=== PATIENT | male | born 1950 | race Caucasian/White ===

== ENCOUNTER 2021-04-19 13:32 | Outpatient (CLI) | payer MEDICARE, OTHER, SELFPAY ==
--- NOTE | 2021-04-19 | CT_ITS ---
WS: [id number] Exam: CT neck w con* [id number] Date/Time of Exam: 04/19/2021 1:43 PM Reason For Exam: PARALYSIS OF VOCAL CORDS AND LARYNX DLP: 1586.[address] scans at [facility] use at least one of these dose optimization techniques: automat ed exposure control; mA and/or kV adjustment per patient size (includes targeted exams where dose is matched to clinical indication); or iterative reconstruction. The next evaluated in the axial plane with sagittal coronal reformatted images. Intravenous contrast was administered. There was no sign of neck mass or significant cervical lymphadenopathy. The airway is patent. The sub mandibular glands and parotid glands are symmetrical side to side. No mass is seen in the region of t he tongue base. No airway mass seen. Normal thyroid tissue. No superior mediastinal lymphadenopathy s een. Vascular structures are unremarkable. Moderate degenerative change of the mid cervical spine. Vi sualized upper lung zones were clear. Small retention cyst in the posterior right maxillary sinus. Li mited images of the brain demonstrate no mass or acute bleed. CT/CT neck w con* [id number] IMPRESSION: 1. No sign of neck mass or significant cervical lymphadenopathy. No mass noted in the region of the airway. 2. Other minor findings as above.
[2021-04-19] MEDS: iohexol 300 mg/mL 100 mL Btl IV (14:15)
[2021-04-19 14:41] LABS: Blood Urea Nitrogen 13 mg/dL (8-23)
== END 2021-04-19 13:33 | disposition home or self-care (01) ==
PROVIDERS: Visit Provider Specialist
DX: J38.01 Paralysis of vocal cords and larynx, unilateral (principal); D49.0 Neoplasm of unspecified behavior of digestive system
CPT/HCPCS: 70491; 82565; 84520; Q9967

== ENCOUNTER → 2022-04-10 09:50 | Outpatient (BNVA) | payer MEDICARE, OTHER, SELFPAY | PROVIDERS: PCP Family Medicine; Visit Provider Family Medicine | DX: Z00.00 Encounter for general adult medical examination without abnormal findings (principal); R49.9 Unspecified voice and resonance disorder; R63.4 Abnormal weight loss; K46.9 Unspecified abdominal hernia without obstruction or gangrene | CPT/HCPCS: 80053; 82465; 84443; 85025 ==

== ENCOUNTER → 2022-04-16 07:50 | Outpatient (BNVA) | payer MEDICARE, OTHER, SELFPAY | PROVIDERS: PCP Family Medicine; Visit Provider Surgery | DX: K42.9 Umbilical hernia without obstruction or gangrene (principal); K40.90 Unilateral inguinal hernia, without obstruction or gangrene, not specified as recurrent | CPT/HCPCS: 99203 ==

== ENCOUNTER 2022-05-05 09:30 | Day surgery (SDC) | payer MEDICARE, OTHER, SELFPAY ==
[2022-05-05] VITALS (8 sets, daily range): BP systolic 140–165; BP diastolic 29–94; PULSE 55–86; RESP 13–18; TEMP 36.1–36.6; O2SAT 93–97
--- NOTE | 2022-05-05 09:59 | W.PM.OPSUD ---
Surgery/Procedure H&P Update DATE OF PROCEDURE: May 05, 2022 DATE H&P PERFORMED: 04/16/22 CHANGES TO PREVIOUS DOCUMENTATION: None PREOP DIAGNOSIS: umbilical and right inguinal hernias PLANNED PROCEDURE: Operation Date: 05/05/22 10:55 Proposed Procedures p laparascopic umbilical hernia repair with mesh & right inguinal hernia repair w/mesh possible open and possible bilateral 49219,28739,K42.9(Not Applicable) - Kostas Oliver DO s Laparoscopic Inguinal Hernia Repair(Not Applicable) - Kostas Oliver DO
[2022-05-05] MEDS: sodium chloride 0.9% 1,000 ML 30 ML IV (10:10)
[2022-05-05] MEDS: ceFAZolin 2,000 MG in sodium chloride 0.9% (plus) 50 ML 100 MG IV (10:16)
--- NOTE | 2022-05-05 10:50 | ANES.PREANE2 ---
Pre-Anesthetic Assessment Height/Weight: Height 1.8 m Weight 72.575 kg Temp Pulse Resp BP Pulse Ox O2 Del Method 97.6 F 55 L 18 140/29 97 05/05/22 09:53 05/05/22 09:53 05/05/22 09:53 05/05/22 09:53 05/05/22 09:53 05/05/22 09:53 Preop Diagnosis: umbilical and right inguinal hernias Operation Date: 05/05/22 10:55 Proposed Procedures p laparascopic umbilical hernia repair with mesh & right inguinal hernia repair w/mesh possible open and possible bilateral 10748,33925,K42.9(Not Applicable) - Kostas Oliver DO s Laparoscopic Inguinal Hernia Repair(Not Applicable) - Kostas Oliver DO Familial anesthetic complications: none Was Beta Alvarez taken within 24 hours: N/A Was Clonidine taken within 24 hours: N/A Last intake: Intake Last Liquid Date 05/04/22 Last Liquid Time 20:00 Last Solid Date 05/04/22 Last Solid Time 20:00 Social No alcohol and No tobacco Exam alert, oriented x 3, clear to auscultation bilaterally and regular rate & rhythm Airway Submandibular: within normal limits Cervical ROM: within normal limits Mallampati: Class II Dentition: chipped History/ROS No significant history except as noted Musc/skel Osteoarthritis/DJD Anesthetic Plan Anesthesia: General Medications/Allergies Home Medications Medication Instructions Recorded Confirmed Last Taken Type aspirin 325 mg tablet 162.5 mg PO PRN PRN Pain 05/02/22 05/02/22 04/30/22 History Allergies Allergy/AdvReac Type Severity Reaction Status Date / Time No Known Allergies Allergy Unverified 04/16/22 07:52 Current Medications Generic Name Dose Route Start Last Admin Trade Name Freq PRN Reason Stop Dose Admin Sodium Chloride 1,000 mls @ 30 mls/hr 05/05/22 10:00 05/05/22 10:10 Sodium Chloride 0.9% IV 05/06/22 09:59 30 mls/hr .Q24H YAN Administration PFSH Anesthesia Surgical History History of esophagogastroduodenoscopy (EGD) [address] Mercedes Hx of colonoscopy Hx of tonsillectomy Social History Smoking and tobacco status: never smoked Data Anesthesia Cardiac Studies: No Data to Display
--- NOTE | 2022-05-05 11:58 | P.OP_ITS ---
Operative Report Date of procedure: May 05, 2022 Pre-op diagnosis: Preop Diagnosis umbilical and right inguinal hernias Post-op diagnosis: same Procedure done: Laparoscopic repair of right inguinal hernia and umbilical hernia with meshes Implants: Extra-large right inguinal 3D max mesh and 11 cm round ventral light mesh Specimens removed/disposition: Umbilical hernia sac Surgeon: Dr. Kostas Oliver DO Anesthesia: General Estimated blood loss (mL): 10 Complications: None apparent Brief History: This is a very pleasant 72-year-old male with a years long history of umbilical hernia and a 5-month history of right inguinal hernia. Repairs were indicated for both. Risks and benefits were explained and documented Procedure: Patient was wheeled into the operative room and placed on the OR table in a supine position. Abdomen was inspected prepped and draped in usual sterile fashion. Time-out was performed and all present were in agreement. A 15 blade scalpel was used to make 1.2 centimeter incision infraumbilically. Combination of sharp and blunt dissection was performed down to the anterior rectus sheath which was opened sharply. The dissecting balloon was then inserted into the space of Retzius and blown up. We put the camera into the port and identified that we were in the correct space. I then placed 2 5 millimeter trocars supr apubically in the midline. I then used endokitners to bluntly dissect in the space of Retzius out laterally. An indirect right inguinal hernia was identified. Blunt dissection was performed to dissect down the hernia sac until the vas deferens dove medially. There was a tiny arterial bleed from the side of the testicular artery which stopped with a tiny pulse of cautery on the side of the artery. An extra large right inguinal mesh was then placed into the space of Retzius. The mesh was unrolled and tacked once medially at the pubic bone. The mesh laid out nicely over the spermatic cord. Photos were taken of the mesh laid out and the hernia sac laid underneath the mesh. I watched the hernia sac remained in place as insufflation was removed. A 15 blade scalp was used to make a 5 millimeter incision left upper quadrant. A Veress needle was placed into the incision and intra-abdominal insufflation was brought to 15 millimeters of mercury. A 2nd 5 millimeter trocar was placed into the left lower quadrant. The energy device was then used to cut out the hernia sac, which was then removed via the left lower quadrant port. An 11 centimeter mesh was placed into the abdomen and brought up through the umbilicus. The mesh was then tacked in place in a double crown fashion. The skeleton was then removed from the mesh. Incisions were closed with 4 O Vicryl in a subcuticular interrupted fashion. Skin glue was applied. A dressing that included cotton balls and a Tegaderm was placed over the umbilicus. Patient tolerated the procedure well.
[2022-05-05] MEDS: tranexamic acid 1,000 mg/10mL SDV 1000 MG IV (12:20)
[2022-05-05] MEDS: HYDROcodone-acetaminophen 7.5-325 mg Tablet 1 TAB PO (12:49)
--- NOTE | 2022-05-05 13:04 | ANE.PACU2 ---
Inpatient post-anesthesia follow up: Airway intact: Yes Vital signs: Temperature 97.8 F Pulse Rate 86 Respiratory Rate 13 Blood Pressure 165/84 Pulse Oximetry 95 Oxygen Delivery Me thod Room Air Oxygen Flow Rate Fraction of Inspir ed Oxygen Hydration adequate: Yes Nausea and vomiting: No Pain level: 4 Mental status: Baseline
== END 2022-05-05 13:11 | disposition home or self-care (01) ==
PROVIDERS: PCP Family Medicine; Visit Provider Surgery
PROC: 0WQF4ZZ Repair Abdominal Wall, Percutaneous Endoscopic Approach (ICD-10-PCS; CPT 49650; principal; 2022-05-05 10:45)
PROC: (CPT 49650; 2022-05-05 10:45)
DX: K40.90 Unilateral inguinal hernia, without obstruction or gangrene, not specified as recurrent (principal); K42.9 Umbilical hernia without obstruction or gangrene; M19.90 Unspecified osteoarthritis, unspecified site
CPT/HCPCS: 49650; 49652; 51702; 88302; C1781; J1100; J1200; J2405; J2704; J2710; J3010; J3490; J7030

== ENCOUNTER → 2022-05-21 13:53 | Outpatient (BNVA) | payer MEDICARE, OTHER, SELFPAY | PROVIDERS: PCP Family Medicine; Visit Provider Surgery | DX: Z98.890 Other specified postprocedural states (principal); Z87.19 Personal history of other diseases of the digestive system | CPT/HCPCS: 99024 ==

== ENCOUNTER 2022-07-01 06:00 | Outpatient (RCR) | payer MEDICARE, OTHER, SELFPAY | END 2022-07-21 23:59 | disposition home or self-care (01) | LOC: SST 06:00 | PROVIDERS: PCP Family Medicine; Visit Provider Specialist | DX: J38.01 Paralysis of vocal cords and larynx, unilateral (principal); R49.0 Dysphonia | CPT/HCPCS: 92507; 92524 ==

== ENCOUNTER → 2022-07-21 10:30 | Outpatient (BNVA) | payer MEDICARE, OTHER, SELFPAY | PROVIDERS: PCP Family Medicine; Visit Provider Surgery | DX: Z12.11 Encounter for screening for malignant neoplasm of colon (principal) | CPT/HCPCS: 99024; 99213 ==

== ENCOUNTER 2022-09-19 05:43 | Day surgery (SDC) | payer MEDICARE, OTHER, SELFPAY ==
[2022-08-13 09:34] VITALS: BMI 22.3
[2022-09-19 06:04] VITALS: BP 129/79; PULSE 66; RESP 18; TEMP 36.5; O2SAT 99
[2022-09-19] MEDS: sodium chloride 0.9% 1,000 ML 30 ML IV (06:17)
--- NOTE | 2022-09-19 06:27 | ANES.PREANE2 ---
Pre-Anesthetic Assessment Height/Weight: Height 1.8 m Weight 72.575 kg Temp Pulse Resp BP Pulse Ox O2 Del Method 97.7 F 66 18 129/79 99 09/19/22 06:04 09/19/22 06:04 09/19/22 06:04 09/19/22 06:04 09/19/22 06:04 09/19/22 06:04 Preop Diagnosis: Screening Operation Date: 09/19/22 07:00 Proposed Procedures p Colonoscopy 37012,Z12.11(Not Applicable) - Kostas Oliver DO Familial anesthetic complications: None Was Beta Alvarez taken within 24 hours: N/A Was Clonidine taken within 24 hours: N/A Last intake: Intake Last Liquid Date 09/18/22 Last Liquid Time 22:00 Last Solid Date 09/17/22 Last Solid Time 20:00 Social Alcohol (1-2 beers a day) and No tobacco Exam alert, oriented x 3, clear to auscultation bilaterally and regular rate & rhythm Airway Submandibular: within normal limits Cervical ROM: within normal limits Mallampati: Class III Dentition: chipped and full History/ROS No significant history except as noted and No significant complaints Pulmonary None reported CV/HEM None reported None reported Hepatic None reported GI None reported Metabolic None reported Musc/skel Lower Back Pain and Osteoarthritis/DJD Neuropsych None reported Anesthetic Plan ASA status: 2 Anesthesia: Anesthesia Evaluation, General and MAC Risk of > 500 ml blood loss (7ml/kg in children): No Medications/Allergies Home Medications Medication Instructions Recorded Confirmed Last Taken Type aspirin 325 mg tablet 162.5 mg PO PRN PRN Pain 05/02/22 09/16/22 08/20/22 History Allergies Allergy/AdvReac Type Severity Reaction Status Date / Time No Known Allergies Allergy Unverified 09/16/22 13:30 Current Medications Generic Name Dose Route Start Last Admin Trade Name Freq PRN Reason Stop Dose Admin Sodium Chloride 1,000 mls @ 30 mls/hr 09/19/22 06:00 09/19/22 06:17 Sodium Chloride 0.9% IV 09/20/22 05:59 30 mls/hr .Q24H YAN Administration PFSH Anesthesia Surgical History History of esophagogastroduodenoscopy (EGD) [address] Mercedes Hx of colonoscopy Hx of tonsillectomy S/P hernia repair 05/05/22 Laparoscopic repair of right inguinal hernia and umbilical hernia with meshes Social History Smoking and tobacco status: never smoked Data Anesthesia Cardiac Studies: No Data to Display
--- NOTE | 2022-09-19 06:52 | PM.HP ---
Providers/Chief Complaint Primary Care Provider: Rosas Mcgee DO Chief Complaint: encounter for screening for malignant History of Present Illness Izaiah Rodriguez is a 72 year old male here for colonoscopy Medications/Allergies Home Medications Medication Instructions Recorded Confirmed Last Taken Type aspirin 325 mg tablet 162.5 mg PO PRN PRN Pain 05/02/22 09/16/22 08/20/22 History Allergies Allergy/AdvReac Type Severity Reaction Status Date / Time No Known Allergies Allergy Unverified 09/16/22 13:30 PFSH Acute PFSH: Surgical History History of esophagogastroduodenoscopy (EGD) [address] Mercedes Hx of colonoscopy Hx of tonsillectomy S/P hernia repair 05/05/22 Laparoscopic repair of right inguinal hernia and umbilical hernia with meshes Social History Smoking and tobacco status: never smoked Vitals/I&O/Wt Last Vital Signs Temp 97.7 F 09/19/22 06:04 Pulse 66 09/19/22 06:04 Resp 18 09/19/22 06:04 BP 129/79 09/19/22 06:04 Pulse Ox 99 09/19/22 06:04 O2 Del Method 09/19/22 06:04 A&P Assessment and plan (1) Screening for colon cancer: Plan Colonoscopy Attestations Medical Necessity Statement*: Home Coding Level of Care Code Acute Energy Operations Vice President for Chg Fwd Diagnoses Screening for colon cancer Z12.11
[2022-09-19 07:17] VITALS: BP 93/59; PULSE 61; RESP 16; TEMP 36.3; O2SAT 97
[2022-09-19 07:30] VITALS: BP 120/72; PULSE 60; RESP 18; O2SAT 95
--- NOTE | 2022-09-19 14:04 | ANE.PACU2 ---
Inpatient post-anesthesia follow up: Airway intact: Yes Vital signs: Temperature 97.4 F Pulse Rate 60 Respiratory Rate 18 Blood Pressure 120/72 Pulse Oximetry 95 Oxygen Delivery Me thod Room Air Oxygen Flow Rate Fraction of Inspir ed Oxygen Hydration adequate: Yes Nausea and vomiting: No Pain level: 1 Mental status: Baseline
== END 2022-09-19 07:53 | disposition home or self-care (01) ==
PROVIDERS: PCP Family Medicine; Visit Provider Surgery
PROC: 0DJD8ZZ Inspection of Lower Intestinal Tract, Via Natural or Artificial Opening Endoscopic (ICD-10-PCS; CPT 45378; principal; 2022-09-19 07:00)
DX: Z12.11 Encounter for screening for malignant neoplasm of colon (principal); K57.30 Diverticulosis of large intestine without perforation or abscess without bleeding; Z79.82 Long term (current) use of aspirin
CPT/HCPCS: G0121; J2704; J7030

== ENCOUNTER → 2022-12-15 11:30 | Outpatient (BNVA) | payer MEDICARE, OTHER, SELFPAY | PROVIDERS: PCP Family Medicine; Visit Provider Clinical Nurse Specialist Adult Health | DX: G25.2 Other specified forms of tremor (principal); R27.9 Unspecified lack of coordination; R63.4 Abnormal weight loss; K46.9 Unspecified abdominal hernia without obstruction or gangrene | CPT/HCPCS: 80053; 81000; 85025 ==

== ENCOUNTER 2023-01-05 07:06 | Outpatient (CLI) | payer MEDICARE, OTHER, SELFPAY ==
--- NOTE | 2023-01-05 07:15 | MR_ITS ---
WS: [id number] MRI HEAD WITHOUT CONTRAST TECHNIQUE: Sagittal T1, T2 axial, T2 axial FLAIR, axial and coronal T1 images, axial susceptibility w eighted imaging, axial diffusion weighted images, and coronal T2 images were obtained. CLINICAL INFORMATION: change in motor skills COMPARISON: CT 2010 FINDINGS: No evidence of restricted diffusion to suggest acute ischemia. Ventricular system and basal cisterns are patent. Moderate small vessel changes. Moderate parenchymal volume loss. Normal vascular flow voi ds at the skull base. No extra-axial fluid collections. No evidence of mass or mass effect. Paranasal sinuses and mastoid air cells well aerated. Normal posterior nasopharynx. Normal parapharyngeal fat. Small retention cyst RIGHT maxillary sinus measuring 9 mm. No hemosiderin on the susceptibly weighted images. Temporal lobes and hippocampal formations are norm al in appearance with mild symmetric atrophy. Normal optic chiasm and pituitary infundibulum. Normal cavernous sinuses and Meckel's cave. MR/MR head wo con* [id number] IMPRESSION: 1. No evidence of restricted diffusion to suggest acute ischemia. 2. Moderate small vessel changes with moderate parenchymal volume loss progres sed compared to the CT 2010 3. No hemosiderin on susceptibly weighted images. 4. Mild symmetric atrophy of the temporal lobes and hippocampal formations. 5. No other suspicious findings.
== END 2023-01-05 07:07 | disposition home or self-care (01) ==
LOC: RAD 07:08
PROVIDERS: PCP Family Medicine; Visit Provider Clinical Nurse Specialist Adult Health
DX: G25.2 Other specified forms of tremor (principal); R27.9 Unspecified lack of coordination; R63.4 Abnormal weight loss; R49.9 Unspecified voice and resonance disorder
CPT/HCPCS: 70551

== ENCOUNTER → 2023-03-10 09:51 | Outpatient (BNVA) | payer MEDICARE, OTHER, SELFPAY | PROVIDERS: PCP Family Medicine; Visit Provider Psychiatry & Neurology Neurology | DX: G20 Parkinson's disease (principal); R26.89 Other abnormalities of gait and mobility; R27.9 Unspecified lack of coordination; R93.0 Abnormal findings on diagnostic imaging of skull and head, not elsewhere classified | CPT/HCPCS: 99203 ==

== ENCOUNTER → 2023-03-17 14:37 | Outpatient (BNVA) | payer MEDICARE, OTHER, SELFPAY | PROVIDERS: PCP Family Medicine; Visit Provider Clinical Nurse Specialist Adult Health | DX: N40.0 Benign prostatic hyperplasia without lower urinary tract symptoms (principal); N52.9 Male erectile dysfunction, unspecified; R63.4 Abnormal weight loss; H61.22 Impacted cerumen, left ear; L57.0 Actinic keratosis | CPT/HCPCS: 84153 ==

== ENCOUNTER 2023-03-25 13:24 | Outpatient (CLI) | payer MEDICARE, OTHER, SELFPAY ==
--- NOTE | 2023-03-25 13:45 | USCV_ITS ---
MichaelIzaiah reza Age: 72 Gender: M : 1950 Exam Date: 03/25/2023 13:38 Ordering Phys: Winston Patel MD Technologist: RADHA Exam Location: [facility] [place] Indication: WEAKNESS Risk Factors: Previous Vascular Surgery: Right Brachial BP: / Left Brachial BP: / Right Left Velocity (cm/s) Spectral Plaque Velocity (cm/s) Spectral Plaque Syst/Diast Broadening Syst/Diast Broadening 123.50/17.60 Prox CCA 86.30 / 7.60 110.20/15.40 Mid CCA 103.80/ 8.70 90.90/ 16.00 Distal CCA 86.30 / 9.80 48.10/ 13.40 Prox ICA 48.90 / 10.10 57.00/ 18.80 Mid ICA 65.40 / 19.80 52.90/ 15.30 Distal ICA 54.00 / 14.40 153.80 ECA 92.90 0.46 ICA/CCA 0.63 Antegrade Vertebral Antegrade 26.40/ 9.20 cm/s 54.90/ 12.10 cm/s Tri Subclavian Tri 100.6 111.0 0 0 CONCLUSIONS Right ICA stenosis <50%. Left ICA stenosis <50%. Normal antegrade Doppler flow noted in the right vertebral artery. Normal antegrade Doppler flow noted in the left vertebral artery. Akash Rosado MD (Electronically Signed) Final Date: 25 March 2023 14:26 S
--- NOTE | 2023-03-25 14:15 | USCV_ITS ---
Izaiah Rodriguez Age: 72 Gender: M : 1950 Exam Date: 03/25/2023 14:02 Ordering Phys: Winston Patel MD Technologist: Shaniqua Choi Exam Location: [facility] [place]_ Indication: WEAKNESS BP: 139 / 80 HR: 71 Rhythm: Sinus Technical Quality: Adequate MEASUREMENTS (Male / Female) Normal Values 2D ECHO LVOT Diameter 2.0 cm LV Ejection Fraction MOD 2C 72.1 % LV Ejection Fraction 2C AL 73.2 % LA Diameter 3.7 cm LA Width 3.6 cm LA Height 4.2 cm RA Width 2.4 cm RA Height 4.4 cm Aorta at Sinotubular Diameter 2.9 cm IVC Diameter 1.3 cm M-MODE Aortic Annulus Diameter 3.3 cm LA Ao Ratio MM 1.1 MV E Point Septal Separation 0.5 cm DOPPLER AV Peak Velocity 176.7 cm/s LVOT Peak Velocity 154.0 cm/s AV Area Cont Eq vti 3.0 cm squared AV Area Cont Eq pk 2.7 cm squared MV Peak Velocity 130.0 cm/s MV Area PHT 2.9 cm squared Mitral E to A Ratio 0.7 MV E' Velocity 41.5 cm/s Mitral E to MV E' Ratio 9.3 Mitral E to LV E' Lateral Ratio 8.4 Mitral E to LV E' Septal Ratio 10.3 TR Peak Velocity 156.0 cm/s TR Peak Gradient 9.7 mmHg TR Mean Velocity 135.0 cm/s TR Mean Gradient 7.3 mmHg TR Velocity Time Integral 42.8 cm TV Peak E Velocity 59.0 cm/s Right Atrial Pressure 3.0 mmHg Pulmonary Artery Systolic Pressu 12.7 mmHg PV Peak Velocity 179.0 cm/s RV Acceleration Time 0.1 s RV Ejection Time 0.3 s RV AcT/ET 0.5 FINDINGS Left Ventricle Normal left ventricular size. LV systolic function is normal with EF of 60 to 65%. No regional wall motion abnormalities are seen. Grade 1 diastolic dysfunction Right Ventricle The right ventricle is normal in size and function. Right Atrium The right atrium is normal in size. Left Atrium Dilated Mitral Valve Mild mitral annular calcification is seen. Mild mitral regurgitation. Aortic Valve Structurally normal aortic valve without significant stenosis. There is no aortic regurgitation. Tricuspid Valve Trace tricuspid regurgitation. Insufficient TR jet to calculate RVSP. Pulmonic Valve Trace pulmonic regurgitation. Pericardium Normal pericardium without effusion. Aorta Normal ascending aorta dimension. IVC The inferior vena cava appears normal. CONCLUSIONS LV systolic function is normal with EF of 60 to 65% Grade 1 diastolic dysfunction Left atrial dilation Mild mitral regurgitation Trace tricuspid regurgitation Trace pulmonic regurgitation No comparison studies are available Larry Batista MD (Electronically Signed) Final Date: 28 March 2023 09:45 S
== END 2023-03-25 13:25 | disposition home or self-care (01) ==
LOC: RAD 13:27
PROVIDERS: PCP Family Medicine; Visit Provider Psychiatry & Neurology Neurology
DX: R26.89 Other abnormalities of gait and mobility (principal); R53.1 Weakness; R27.9 Unspecified lack of coordination; G25.2 Other specified forms of tremor; I34.0 Nonrheumatic mitral (valve) insufficiency; I65.23 Occlusion and stenosis of bilateral carotid arteries
CPT/HCPCS: 93306; 93880

== ENCOUNTER → 2023-05-27 15:09 | Outpatient (BNVA) | payer MEDICARE, OTHER, SELFPAY | PROVIDERS: PCP Family Medicine; Visit Provider Psychiatry & Neurology Neurology | DX: G20 Parkinson's disease (principal) | CPT/HCPCS: 99212 ==

== ENCOUNTER → 2023-06-05 07:21 | Outpatient (BNVA) | payer MEDICARE, OTHER, SELFPAY | PROVIDERS: PCP Family Medicine; Visit Provider Clinical Nurse Specialist Adult Health | DX: L08.9 Local infection of the skin and subcutaneous tissue, unspecified (principal); B95.8 Unspecified staphylococcus as the cause of diseases classified elsewhere | CPT/HCPCS: 80053; 85025; 85651; 86140 ==

== ENCOUNTER → 2023-06-11 15:48 | Outpatient (BNVA) | payer MEDICARE, OTHER, SELFPAY | PROVIDERS: PCP Family Medicine; Referring Provider Clinical Nurse Specialist Adult Health; Visit Provider Dermatology | DX: L30.9 Dermatitis, unspecified (principal) | CPT/HCPCS: 11104; 11105; 99204 ==

== ENCOUNTER → 2023-06-24 14:17 | Outpatient (BNVA) | payer MEDICARE, OTHER, SELFPAY | PROVIDERS: PCP Family Medicine; Visit Provider Dermatology | DX: L12.0 Bullous pemphigoid (principal) | CPT/HCPCS: 99213 ==

== ENCOUNTER → 2023-08-04 15:13 | Outpatient (BNVA) | payer MEDICARE, OTHER, SELFPAY | PROVIDERS: PCP Family Medicine; Visit Provider Dermatology | DX: L12.0 Bullous pemphigoid (principal) | CPT/HCPCS: 99213 ==

== ENCOUNTER → 2023-08-25 15:16 | Outpatient (BNVA) | payer MEDICARE, OTHER, SELFPAY | PROVIDERS: PCP Family Medicine; Visit Provider Psychiatry & Neurology Neurology | DX: G20.A1 Parkinson's disease without dyskinesia, without mention of fluctuations (principal) | CPT/HCPCS: 99212 ==

== ENCOUNTER → 2023-12-03 15:23 | Outpatient (BNVA) | payer MEDICARE, OTHER, SELFPAY | PROVIDERS: PCP Family Medicine; Visit Provider Nurse Practitioner Family | DX: L12.0 Bullous pemphigoid (principal); L72.0 Epidermal cyst; L57.0 Actinic keratosis; S50.911A Unspecified superficial injury of right forearm, initial encounter; X58.XXXA Exposure to other specified factors, initial encounter | CPT/HCPCS: 17000; 99213 ==

== ENCOUNTER → 2024-03-17 08:40 | Outpatient (BNVA) | payer MEDICARE, OTHER, SELFPAY | PROVIDERS: PCP Family Medicine; Visit Provider Clinical Nurse Specialist Adult Health | DX: L98.9 Disorder of the skin and subcutaneous tissue, unspecified (principal) | CPT/HCPCS: 88304 ==

== ENCOUNTER → 2024-04-05 14:23 | Outpatient (BNVA) | payer MEDICARE, OTHER, SELFPAY | PROVIDERS: PCP Family Medicine; Visit Provider Psychiatry & Neurology Neurology | DX: G20.A1 Parkinson's disease without dyskinesia, without mention of fluctuations (principal) | CPT/HCPCS: 99212 ==

== ENCOUNTER → 2024-04-11 11:29 | Outpatient (BNVA) | payer MEDICARE, OTHER, SELFPAY | PROVIDERS: PCP Family Medicine; Visit Provider Surgery | DX: C43.9 Malignant melanoma of skin, unspecified (principal); L98.9 Disorder of the skin and subcutaneous tissue, unspecified; R03.0 Elevated blood-pressure reading, without diagnosis of hypertension | CPT/HCPCS: 99204; 99214 ==

== ENCOUNTER 2024-05-17 07:55 | Day surgery (SDC) | payer MEDICARE, OTHER, SELFPAY ==
--- OUTSIDE RECORDS SUMMARY | 2024-04-15 16:34 | XMS_ITS ---
Author Name Unknown Organization [facility] Address [address] [place] [address] Care Team Providers Care Fur Sorter Name Role Phone Rosas Mcgee Primary Care Provider Vinod Orellana [phone] REASON FOR VISIT 1 yr w/ psa Encounters Encounter Location Date Provider Diagnosis [facility] [address] [place] [address] 04/04/2024 Vinod Calloway Plan Of Treatment No Information Progress Notes * Izaiah FIELD LDOB: [birth year] (74 yo M)Acc No.[id number]:04/04/2024 Progress Notes Patient:?Izaiah FIELD Provider:?Vinod Calloway MD :1950???Age:74 Y???Sex:Male Ambrocio e:04/04/2024 Address:[address] [place], [place] [id number] Pcp:Rosas Mcgee Subjective: * Chief Complaints: * ???1. 1 yr w/ psa. * Medical History:? Objective: * Vitals:? Assessment: Plan: * Treatment: * Billing Information: * Visit Code:? * Procedure Codes:? * Electronic signature of Aust in MD Brodie on 04/15/2024 at 04:34 PM CDT Sign off status: Pending * Provider:?Vinod Calloway MD Date:? Generated for Helenai svitlana/Ena/eTransmitting on:?04/15/2024 04:34 PM CDT
--- OUTSIDE RECORDS SUMMARY | 2024-04-15 16:34 | XMS_ITS ---
Author Name Unknown Organization [facility] Address [address] [place] [address] Care Team Providers Care Bull Wheel Worker Name Role Phone Rosas Mcgee Primary Care Provider Vinod Orellana Unavailable [phone] Remy Yip Unavailable [phone] Allergies No Known Allergies REASON FOR VISIT 4 mo w/ psa Medications Medication SIG (Take, Route, Fr equency, Duration) Notes Start Date End Date Status Zinc Active Vitamin B Complex Ac tive Multivitamin Active Social History Tobacco Use: Social History Observation Description Date Details (start date - stop date) Never Smoker NA - NA xTobacco Use/Smoking Question Answer Notes Are you a nonsmoker Vital Signs Temperature 97.9 degrees Fahrenheit 03/30/20 23 Blood pressure systolic 128 mm Hg 03/30/20 23 Blood pressure diastolic 91 mm Hg 023 Heart Rate 68 /min 03/30/2023 Height 71 in 03/30/2023 Weight 160 lbs 03/30/2023 BMI 22.31 kg/m2 03/30/2023 Height-cm 180.34 cm 03/30/2023 Weight-kg 72.57 kg 03/30/2023 Encounters Encounter Location Date Provider Diagnosis [facility] [address] [place] [address] 03/30/2023 Remy Yip Elevated PSA R97.20 ; Other specified postprocedural states Z98.890 and Personal history of other diseases of the digestive system Z87.19 Assessments Encounter Date Diagnosis (ICD Code) Assessment Notes Treat ment Notes Treatment Clinical Notes 03/30/2023 Elevated PSA (ICD-10 - R97.20) 03/30/2023 Other specified postprocedural states (ICD-10 - Z98.890) 03/30/2023 Personal history of other diseases of the digestive system (ICD-10 - Z87.19) Plan Of Treatment Future Test Test Name Order Date PSA Diagnostic--[id number] 03/30/2023 Next Appt Details Follow Up: 1 Year, Reason: Progress Notes * Izaiah FIELD LDOB: [birth year] (73 yo M)Acc No.[id number]:03/30/2023 Progress Notes Patient:?Izaiah Field Provider:?Remy Yip APRN :1950???Age:73 Y???Sex:Male Ambrocio e:03/30/2023 Address:[address] [place], [place] [id number] Pcp:Rosas Mcgee Check Out: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 The patient is a 73-yo male, referred by PCP for BPH. He reports the doctor noticed an enlarged prostate on the right side during a colonoscopy. PSA 3.06 on 12/19/2010. He is s/p laparoscopic umbilical and inguinal hernia repair with mesh on 05/05/[address] Oliver at [facility] in [place]. He c/o frequency, however, he notes to drink a lot of beer and coffee. He has been on Viagra 25 mg in the past. He denies h/o UTIs. Previous IPSS 4, QOL 1. UA continues to remain clear, and patient is emptying well by reports. No family history of prostate cancer. Denies unintentional weight loss. ?Patient last saw Dr. Calloway on 11/20/22, and here today for interval followup and symptom reassessment. PSA at last office visit was 5.29 drawn on 11/07/22. He reports he has been doing well and denies any urinary complaints. SOLIS at last office visit was with no acute findings. Today's PSA of 4.4. * ROS:?General - Multi System:?Constitutional?Denies, chills , fever , BODY ACHES.?Cardiovascular?Denies recent chest pains.?Respiratory?Denies shortness of breath.?Gastrointestinal?Denies constipation, diarrhea, vomiting.?Genitourinary?As per HPI.?Integumentary?Denies any rashes.? * Medical History:? * Surgical History:?umbilical hernia repair 04/2022tonsillectomy * Hospitalization/Major Diagno stic Procedure:?No Hospitalization History. * Family History:?Father: dece ased.?Mother: .? * Social History:?Tobacco Use:?Tobacco Use/Smoking?Are you a?nonsmoker * Medications:?TakingZinc Mult ivitamin Vitamin B Complex Taking Zinc Taking Multivitamin Taking Vitamin B Complex DiscontinuedAspirin Medication List reviewed and reconciled with the patientDiscontinued Aspirin Medication List reviewed and reconciled with the patient * Allergies:?N.K.D.A.no[Allerg ies Verified] Objective: * Vitals:?Ht: 71 in, Wt:160 lb s, Wt-k.57 kg, BMI:22.31 Index, Temp:97.9 F, BP:128/91 mm Hg, HR:68 /min, Ht-cm: 180.34 cm. * Examination: ???General Examination: ?GENERAL APPEARANCE:?alert, well hydrated, in no distress.?HEAD:?normocephalic, atraumatic.?HEART:?well-perfused.?LUNGS:?nonlabored breathing.?RECTAL:?Normal tone, benign feeling prostate, greater than 40 g, no nodules, asymmetrical with right lobe larger than left.?BACK:?no costovertebral angle tenderness.?PSYCH:?alert, oriented, cognitive function intact, cooperative with exam.? Assessment: * Assessment: 1.?Elevated PSA - R97.20 (Pr imary)?2.?Other specified postprocedural states - Z98.890?3.?Personal history of other diseases of the digestive system - Z87.19? 73-yo male with elevated PSA and h/o hernia repair. PSA 5.29 on 11/07/22. SOLIS benign at last office visit. Today's PSA of 4.4. SOLIS at last office visit with Dr. Calloway was performed and was normal. I again explained to the patient that although his PSA has risen to 5.29 from 3.06 in 2010, it is still within normal range for his age. Today's PSA of 4.4. I recommended repeating PSA and interval follow-ups, however, patient is requesting transition to yearly follow-ups. I agreed with this plan and will schedule accordingly for 1 year follow-up and for symptom reassessment and new PSA as mentioned. RTC or call sooner with any concerns. The patient voices understanding and agrees with the plan. All of his questions were answered to his satisfaction. Plan: * Treatment: * Procedure Codes:? * Follow Up:?1 Year * Billing Information: * Visit Code:? 10167 Office Visit, Est Pt., Level 3. * Procedure Codes:? * Sign off status: Completed true * Provider:Elvia Yip APRN Date:?03/21 Generated for Anahi shane/Ena/Bekah on:?04/15/2024 04:34 PM CDT History and Physical Notes * Examination Category Sub-Category Detail Notes General Examination GENERAL APPEARANCE: alert, w ell hydrated, in no distress HEAD: normocephalic, atrau matic HEART: well-perfused LUNGS: nonlabored breathing BACK: no costovertebral an gle tenderness RECTAL: Normal tone, benign feeling prostate, greater than 40 g, no nodules, asymmetrical with right lobe larger than left PSYCH: alert, oriented, cog nitive function intact, cooperative with exam
--- OUTSIDE RECORDS SUMMARY | 2024-04-15 16:35 | XMS_ITS ---
Author Name Unknown Organization [facility] Address [address] [place] [address] Care Team Providers Care Bessemer Bottom Maker Name Role Phone Rosas Mcgee Primary Care Provider Vinod Orellana Unavailable [phone] Allergies No Known Allergies REASON FOR VISIT 2-3 wks w/ psa Medications Medication SIG (Take, Route, Fr equency, Duration) Notes Start Date End Date Status Aspirin Active Zinc Active Multivitamin Active Vitamin B Complex Ac tive Social History Tobacco Use: Social History Observation Description Date Details (start date - stop date) Never Smoker NA - NA xTobacco Use/Smoking Question Answer Notes Are you a nonsmoker Problems Problem Type SNOMED Code ICD Code Onset Dates Problem Status W/U Status Risk Notes Problem 940959192 Elevated PSA (R97.20) Active confirmed Problem 04346269489012 Other specified postprocedural states (Z98.890) Active confirmed Problem 327421132 Personal history of other diseases of the digestive system (Z87.19) Active confirmed Vital Signs Temperature 98.3 degrees Fahrenheit 11/21/19 23 Blood pressure systolic 166 mm Hg 11/21/19 23 Blood pressure diastolic 78 mm Hg 023 Heart Rate 61 /min 11/20/2022 Height 71 in 11/20/2022 Weight 160 lbs 11/20/2022 BMI 22.31 kg/m2 11/20/2022 Height-cm 180.34 cm 11/20/2022 Weight-kg 72.57 kg 11/20/2022 Encounters Encounter Location Date Provider Diagnosis [facility] [address] [place] [address] 11/20/2022 Vinod Calloway Elevated PSA R97.20 ; Other specified postprocedural states Z98.890 and Personal history of other diseases of the digestive system Z87.19 Assessments Encounter Date Diagnosis (ICD Code) Assessment Notes Treat ment Notes Treatment Clinical Notes 11/20/2022 Elevated PSA (ICD-10 - R97.20) 11/20/2022 Other specified postprocedural states (ICD-10 - Z98.890) 11/20/2022 Personal history of other diseases of the digestive system (ICD-10 - Z87.19) Plan Of Treatment Next Appt Details Follow Up: 4 Months, Reason: Progress Notes * Izaiah FIELD LDOB: [birth year] (72 yo M)Acc No.[id number]:11/20/2022 Progress Notes Patient:?Izaiah Field Provider:?Vinod Calloway MD :1950???Age:72 Y???Sex:Male Ambrocio e:11/20/2022 Address:[address] [place], [place] [id number] Pcp:Rosas Bolton In:08:42 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 The patient is a 72-yo male, referred by PCP for BPH. He reports the doctor noticed an enlarged prostate on the right side during a colonoscopy. PSA 3.06 on 12/19/2010. He is s/p laparoscopic umbilical and inguinal hernia repair with mesh on 05/05/[address] Oliver at [facility] in [place]. He c/o frequency, however, he notes to drink a lot of beer and coffee. He has been on Viagra 25 mg in the past. He denies h/o UTIs. IPSS 4, QOL 1. UA is clear. PVR 98. No family history of prostate cancer. Denies unintentional weight loss. ?The patient presents today for interval f/u for SOLIS and new PSA of 5.29 on 11/07/22. He reports he has been doing well and denies any urinary complaints. * ROS:?General - Multi System:?Constitutional?Denies, chills , fever , BODY ACHES.?Cardiovascular?Denies recent chest pains.?Respiratory?Denies shortness of breath.?Gastrointestinal?Denies constipation, diarrhea, vomiting.?Genitourinary?As per HPI.?Integumentary?Denies any rashes.? * Medical History:? * Surgical History:?umbilical hernia repair 04/2022tonsillectomy * Hospitalization/Major Diagno stic Procedure:?No Hospitalization History. * Family History:?Father: dece ased.?Mother: .? * Social History:?Tobacco Use:?Tobacco Use/Smoking?Are you a?nonsmoker * Medications:?TakingZinc Mult ivitamin Vitamin B Complex Aspirin Medication List reviewed and reconciled with the patientTaking Zinc Taking Multivitamin Taking Vitamin B Complex Taking Aspirin Medication List reviewed and reconciled with the patient * Allergies:?N.K.D.A.no[Allerg ies Verified] Objective: * Vitals:?Ht 71 in, Wt160 lbs, Wt-kg 72.57 kg, BMI22.31 Index, Temp98.3 F, BP166/78 mm Hg, HR61 /min, Ht-cm 180.34 cm. * Examination: ???General Examination: ?GENERAL [...] diseases of the digestive system - Z87.19? 72-yo male with elevated PSA and h/o hernia repair. PSA 5.29 on 11/07/22. SOLIS benign today. SOLIS was performed and was normal today. I explained to the patient that although his PSA has risen to 5.29 from 3.06 in 2010, it is still within normal range for his age. I recommended repeating it in 4 months to see if it is stable. If it has risen closer to 6 at that time, I will then recommend proceeding with an MRI of the prostate. RTC in [place] to see Remy Yip APRN, or myself in 4 months for symptom reassessment and new PSA. RTC or call sooner with any concerns. The patient voices understanding and agrees with the plan. All of his questions were answered to his satisfaction. Plan: - RTC in [place] to see Remy Ypi APRN, or myself in 4 months with a new PSA - RTC or call sooner with any concerns IMelisa, Lisbeth, am scribing for, and in the presence of, Dr. Calloway. I, Dr. Vinod Calloway, personally performed the services prescribed in this documentation, as scribed by Melisa Dawson, in my presence, and it is both accurate and complete. Plan: * Treatment: * Procedure Codes:? * Follow Up:?4 Months * * ONNEL CLERKS SUPERVISOR Sign off status: Completed true * Provider:?Vinod Calloway MD Date:?10/2022 Generated for Anahi shane/Ena/eTransmitting on:?04/15/2024 04:34 PM CDT History and Physical [...]
--- OUTSIDE RECORDS SUMMARY | 2024-04-15 16:35 | XMS_ITS | Patient Health Record ---
Author Name Unknown Organization [facility] Address [address] [place] [address] Care Team Providers Care Instructional Design Consultant Name Role Phone Rosas Mcgee Primary Care Provider Vinod Orellana Unavailable [phone] Allergies No Known Allergies Reason For Referral No Information Medications Medication SIG (Take, Route, Fr equency, [...] Problem Status W/U Status Risk Notes Problem [id number] Personal history of other diseases of the digestive system (Z87.19) Active confirmed Problem 24955595960999 Other specified postprocedural states (Z98.890) Active confirmed Problem 080714002 Elevated PSA (R97.20) Active confirmed Problem 578632782 Prostate cancer screening (Z12.5) Active confirmed Problem 910506029 Benign prostatic hyperplasia, unspecified whether lower urinary tract symptoms present (N40.0) Active confirmed Problem 182283321 BPH loc w urin obs/LUTS (N40.1) Active confirmed Problem 846329714 Scrotal swelling (N50.89) Active confirmed Plan Of Treatment Pending Test Test Name Order Date PSA Diagnostic--[id number] 11/06/2022 Future Test Test Name Order Date PSA Diagnostic--02953 03/30/2023 Insurance Providers Payer Name Payer Address Payer Phone Subscriber Number Group Number Insured Name Patient Relationship to Insured Coverage Start Date Coverage End Date [place] [address] [place] [phone] [id number] Izaiah Rodriguez Self - patient is the insured [facility] Insurance [address] [address] [place] [phone] [id number] Izaiah Rodriguez Self - patient is the insured Medical (General) History Medical History History ICD Code hernias Surgical History Surgery Date(Month/Year) umbilical hernia repair 04/2022 tonsillectomy
[2024-05-17] VITALS (10 sets, daily range): BP systolic 118–143; BP diastolic 65–84; PULSE 54–61; RESP 12–17; TEMP 36.3–36.6; O2SAT 95–99; BMI 22.3
--- NOTE | 2024-05-17 08:46 | P.ANESASSM_ITS ---
Pre-Anesthetic Assessment Height/Weight: Height 1.8 m Weight 72.575 kg Temp Pulse Resp BP Pulse Ox O2 Del Method 97.3 F L 58 L 16 142/84 97 Room Air 05/17/24 08:11 05/17/24 08:11 05/17/24 08:11 05/17/24 08:11 05/17/24 08:11 05/17/24 08:11 Operation Date: 05/17/24 10:00 Proposed Procedures p wide local excision of right arm with sentinel lymph [place] [address], [address], [address], C43.9, L98.9(Right) - Kostas Oliver DO Familial anesthetic complications: None Was Beta Alvarez taken within 24 hours: N/A Was Clonidine taken within 24 hours: N/A Last intake: Intake Last Liquid Date 05/16/24 Last Liquid Time 21:00 Last Solid Date 05/16/24 Last Solid Time 20:00 Social No alcohol and No tobacco Exam alert, oriented x 3, clear to auscultation bilaterally and regular rate & rhythm Airway Mallampati: Class II Dentition: full and other (crown) Comments: Comments: hoarseness with negative ENT w/u several years ago, since improved with treatment for the parkinson's Neuropsych parkinson's Anesthetic Plan ASA status: 3 Anesthesia: General Risk of > 500 ml blood loss (7ml/kg in children): No Medications/Allergies Home Medications Medication Instructions Recorded Confirmed Last Taken Type betamethasone dipropionate 0.05 % 1 applic topical DAILY PRN skin 06/05/23 05/16/24 05/14/24 Rx topical cream irritation #15 grams mupirocin 2 % topical ointment 1 applic topical BID #15 grams 06/11/23 05/16/24 Unknown Rx sildenafil 25 mg tablet (Viagra) 25 mg PO DAILY PRN Sexual Activity 08/10/23 05/16/24 Unknown Rx #30 tabs carbidopa ER 50 mg-levodopa 200 mg 1 tab PO ONCE #90 tabs 04/18/24 05/16/24 05/16/24 Rx tablet,extended release carbidopa 25 mg-levodopa 100 mg 2 tab PO BID 05/16/24 05/16/24 05/17/24 History tablet Allergies Allergy/AdvReac Type Severity Reaction Status Date / Time No Known Allergies Allergy Verified 04/11/24 11:56 [facility] Anesthesia Medical History Erectile dysfunction Parkinsonism Weight loss, non-intentional Surgical History S/P hernia repair 05/05/22 Laparoscopic repair of right inguinal hernia and umbilical hernia with meshes History of esophagogastroduodenoscopy (EGD) [address] Mercedes Hx of tonsillectomy Hx of colonoscopy Family History Father CAD (coronary artery disease) Social History Smoking and tobacco/nicotine status: never used tobacco/nicotine Alcohol intake: current Alcohol intake frequency: 0-2 Drinks per Day Data Anesthesia Cardiac Studies: Echocardiogram 03/25/23
--- NOTE | 2024-05-17 08:52 | NM_ITS ---
WS: [id number] NUCLEAR MEDICINE SENTINEL LYMPH NODE IMAGING HISTORY: RIGHT upper extremity melanoma. COMPARISON: None available. TECHNIQUE: The patient was injected with 1.01 mCi of Technetium 99 Lymphoseek . Injection is intrader mal. Light massage for 30 seconds after the injection. Single injection above the melanoma site. Lymphoseek injection completed at 8:46 a.m. NM/NM sentinel node inject 54633 IMPRESSION: Uncomplicated Lymphoseek injection.
--- NOTE | 2024-05-17 09:20 | PM.HP ---
Providers/Chief Complaint Primary Care Provider: Rosas Mcgee DO Chief Complaint: L98.9 History of Present Illness Izaiah Rodriguez is a 74 year old male Review of Systems General: Reports: 10 or more systems reviewed and unremarkable except in HPI and below Medications/Allergies Home Medications Medication Instructions Recorded Confirmed Last Taken Type betamethasone dipropionate 0.05 % 1 applic topical DAILY PRN skin 06/05/23 05/16/24 05/14/24 Rx topical cream irritation #15 grams mupirocin 2 % topical ointment 1 applic topical BID #15 grams 06/11/23 05/16/24 Unknown Rx sildenafil 25 mg tablet (Viagra) 25 mg PO DAILY PRN Sexual Activity 08/10/23 05/16/24 Unknown Rx #30 tabs carbidopa ER 50 mg-levodopa 200 mg 1 tab PO ONCE #90 tabs 04/18/24 05/16/24 05/16/24 Rx tablet,extended release carbidopa 25 mg-levodopa 100 mg 2 tab PO BID 05/16/24 05/16/24 05/17/24 History tablet Allergies Allergy/AdvReac Type Severity Reaction Status Date / Time No Known Allergies Allergy Verified 04/11/24 11:56 PFSH Acute PFSH: Medical History Erectile dysfunction Parkinsonism Weight loss, non-intentional Surgical History S/P hernia repair 05/05/22 Laparoscopic repair of right inguinal hernia and umbilical hernia with meshes History of esophagogastroduodenoscopy (EGD) [address] Mercedes Hx of tonsillectomy Hx of colonoscopy Family History Father CAD (coronary artery disease) Social History Smoking and tobacco/nicotine status: never used tobacco/nicotine Alcohol intake: current Alcohol intake frequency: 0-2 Drinks per Day Vitals/I&O/Wt Last Vital Signs Temp 97.3 F L 05/17/24 08:11 Pulse 58 L 05/17/24 08:11 Resp 16 05/17/24 08:11 BP 142/84 05/17/24 08:11 Pulse Ox 97 05/17/24 08:11 O2 Del Method Room Air 05/17/24 08:11 Weight last 48 hrs Weight 160 lb A&P Assessment and plan (1) Melanoma: Plan Wide local excision of malignant melanoma right arm Right axillary sentinel lymph node biopsy Attestations Medical Necessity Statement*: HOME Coding Level of Care Code Acute Code for Chg Fwd Diagnoses Melanoma C43.9
[2024-05-17] MEDS: sodium chloride 0.9% 1,000 ML 30 ML IV (09:32)
[2024-05-17] MEDS: ceFAZolin 2,000 mg SDV 2000 MG IVP (10:30)
[2024-05-17] MEDS: isosulfan blue 10 mg/mL SDV 5mL SUBCUT (10:33)
[2024-05-17] MEDS: lidocaine-epi 1% PF 1:200,000 30 mL SDV INJECTION (10:50)
--- NOTE | 2024-05-17 11:41 | PM.OP ---
Operative Report Date of procedure: May 17, 2024 Pre-op diagnosis: Metastatic melanoma right arm Post-op diagnosis: same Procedure done: Right axillary sentinel lymph node biopsy Wide local excision malignant melanoma right arm Superior fasciocutaneous flap creation Inferior fasciocutaneous flap creation Implants: None Specimens removed/disposition: Right axillary sentinel lymph nodes Wide local excision malignant melanoma right arm, long stitch anterior and short double stitch superior Surgeon: Kostas Oliver DO Anesthesia: General and Local Estimated blood loss (mL): 5 Complications: None apparent Brief History: This is a very pleasant 74-year-old gentleman who was found to have malignant melanoma of his right arm invading to a depth of 1.75 mm. Wide local excision with right axillary sentinel lymph node biopsy was indicated. The risks and benefits were explained and documented. Procedure: After radiotracer was injected by radiology, the patient was brought back into the operating room. He was placed on the OR table in the supine position. The right axilla and upper extremity were inspected prepped and draped in usual sterile fashion. Lymphazurin blue was injected underneath the melanoma on the right arm and massaged for 5 minutes. A timeout was performed. All present were in agreement. A 4 cm incision was made in the right axilla. Dissection was carried down with electrocautery. The [place] counter was used to locate a sentinel lymph node. [place] counter showed 895 over the melanoma. 3 relatively normal-sized lymph nodes were identified in the right axilla measuring 152, 121 and 101. These were out bluntly and with electrocautery and passed off to be put in formalin. Hemostasis was noted. Next, after localization a 10 x 3.5 cm elliptical incision was made around the previously diagnosed melanoma on the right arm. The nevus measures 8 mm in diameter. There is significantly more than 1 cm margins in all directions. Electrocautery was used cut mode to cut down through the dermis. Bovie cautery used to excise through the subcutaneous fat and removed the specimen. Hemostasis was achieved with electrocautery. A single short stitch was placed superiorly at 12:00 and a long double stitch placed anteriorly at 3:00. Specimen was passed off to be put in formalin. Due to the size of the excision, fasciocutaneous flaps need to be created both superiorly and inferiorly in order to close the excision site. Bovie cautery was used to create a 1 cm flap going back approximately 5 cm in the superior edge of the excision. Bovie cautery was then used to create a 1 cm thick flap inferiorly, going back 5 cm. There was then enough laxity to bring the tissue together without significant tension. A 3-0 Vicryl sutures were used to approximate the dermis in an interrupted fashion. 3-0 and 4-0 nylon sutures were then used to close the skin in an interrupted vertical mattress and simple fashion. Sterile dressing was applied. Patient tolerated procedure well.
--- NOTE | 2024-05-17 13:31 | ANE.PACU2 ---
Inpatient post-anesthesia follow up: Airway intact: Yes Vital signs: Temperature 97.8 F Pulse Rate 58 Respiratory Rate 17 Blood Pressure 134/78 Pulse Oximetry 99 Oxygen Delivery Me thod Room Air Oxygen Flow Rate 6 Fraction of Inspir ed Oxygen Hydration adequate: Yes Nausea and vomiting: No Pain level: 1 Mental status: Baseline
== END 2024-05-17 13:37 | disposition home or self-care (01) ==
PROVIDERS: PCP Family Medicine; Visit Provider Surgery
PROC: (CPT 14020; principal; 2024-05-17 10:00)
DX: C43.61 Malignant melanoma of right upper limb, including shoulder (principal); G20.A1 Parkinson's disease without dyskinesia, without mention of fluctuations
CPT/HCPCS: 14020; 38500; 38792; 88305; 88307; 88342; A9520; J0690; J1100; J2405; J2704; J3010; J7030; Q9968

== ENCOUNTER 2024-05-18 13:02 | Emergency (ER) | payer MEDICARE, OTHER, SELFPAY ==
[2024-05-18 13:25] VITALS: BP 129/67; PULSE 60; RESP 16; TEMP 36.9; O2SAT 99; BMI 22.6
--- NOTE | 2024-05-18 13:41 | USCV_ITS ---
Izaiah Rodriguez Age: 74 Gender: M : 1950 Exam Date: 05/18/2024 14:29 Ordering Phys: Jimmie Harding MD Technologist: Exam [place] [facility] [place]ication: post rt arm surg rt arm pain and swelling PROCEDURES: Venous duplex imaging was performed in only the right upper extremity. The following venous structures were evaluated: internal jugular vein, subclavian vein, axillary vein, and brachial veins. In addition, the basilic vein, cephalic vein, radial vein, and ulnar vein. FINDINGS: No evidence of deep vein thrombosis or superficial thrombophlebitis in the right upper extremity. CONCLUSIONS No evidence of thrombus of the right upper extremity veins. Akash Rosado MD (Electronically Signed) Final Date: 18 May 2024 16:21 S
--- NOTE | 2024-05-18 14:54 | ED_ITS ---
HPI - Extremity Problem 2 General: Chief complaint: Extremity Problem,Nontraumatic Stated complaint: swelling in arm post op (sent by dr. oliver) Time Seen by Provider: 05/18/24 14:27 Source: patient Mode of arrival: ambulatory Limitations: no limitations History of Present Illness: Patient is a nice 74-year-old male presents to ED today for evaluation of some swelling to the right arm. Patient underwent procedure by Dr. Oliver yesterday to the right axillary region and right arm from melanoma. Procedure done listed below: Procedure done: Right axillary sentinel lymph node biopsy Wide local excision malignant melanoma right arm Superior fasciocutaneous flap creation Inferior fasciocutaneous flap creation Patient has an incision to his right axillary region as well as an incision to the right upper arm. He states this morning he noticed a small amount of swelling into the right forearm and was concerned. He was reportedly sent here from Dr. Oliver. He states overall his pain seems to be doing well and he has been continuing to use the extremity normally. He arrives in no acute distress with stable vital signs. MD Complaint: extremity swelling Onset (ago): hour(s) Location: right and upper extremity Radiation: none Relieving factors: nothing Exacerbating factors: nothing Associated symptoms: Deny chest pain or fever(s) Context: recent surgery/procedure Related Data Home Medications Medication Instructions Recorded Confirmed carbidopa 25 mg-levodopa 100 mg 2 tab PO BID 05/16/24 05/16/24 tablet Previous Rx's Medication Instructions Recorded betamethasone dipropionate 0.05 % 1 applic topical DAILY PRN skin 06/05/23 topical cream irritation #15 grams mupirocin 2 % topical ointment 1 applic topical BID #15 grams 06/11/23 sildenafil 25 mg tablet (Viagra) 25 mg PO DAILY PRN Sexual Activity 08/10/23 #30 tabs carbidopa ER 50 mg-levodopa 200 mg 1 tab PO ONCE #90 tabs 04/18/24 tablet,extended release docusate sodium 100 mg capsule 100 mg PO BID #14 caps 05/17/24 (Colace) hydrocodone 7.5 mg-acetaminophen 1 tab PO Q6H PRN pain #20 tabs 05/17/24 325 mg tablet polyethylene glycol 3350 17 17 g PO DAILY #119 grams 05/17/24 gram/dose oral powder (Miralax) Allergies Allergy/AdvReac Type Severity Reaction Status Date / Time No Known Allergies Allergy Verified 04/11/24 11:56 Review of Systems 2 Const: Denies: fever(s), chills, body aches, fatigue or malaise Card: Denies: chest pain Resp: Denies: dyspnea Musc: Reports: extremity swelling; Denies: extremity pain, joint pain or joint swelling Neuro: Denies: numbness in extremities, weakness in extremities or sensory changes PFSH ED 2 PFSH: Medical History Erectile dysfunction Parkinsonism Weight loss, non-intentional Surgical History S/P hernia repair 05/05/22 Laparoscopic repair of right inguinal hernia and umbilical hernia with meshes History of esophagogastroduodenoscopy (EGD) [address] Mercedes Hx of tonsillectomy Hx of colonoscopy Family History Father CAD (coronary artery disease) Social History Smoking and tobacco/nicotine status: never used tobacco/nicotine Alcohol intake: current Alcohol intake frequency: 0-2 Drinks per Day Physical Exam 2 Const: COMMON NORMALS: no acute distress, average body habitus, patient oriented x3, no limitations, healthy appearing, alert and well nourished Extremity: GENERAL: Yes normal exam except as noted EXTREMITY IMAGE (FRONT): 1. incision appears clean; mild ecchymosis 2. incision appears clean without draina ge; skin irritation from dressing; I do not appreciate any obvious swelling to the extremity Neuro: COMMON NORMALS: patient oriented x3, moves all extremities, no focal motor deficits and no sensory deficits noted SENSORIUM/ORIENTATION: Yes alert Skin: NARRATIVE SKIN EXAM: see above Course 2 Vital Signs: Vital signs: Vital Signs Temperature 98.5 F 05/18/24 13:25 Pulse Rate 60 05/18/24 13:25 Respiratory Rate 16 05/18/24 13:25 Blood Pressure 129/67 05/18/24 13:25 Pulse Oximetry 99 05/18/24 13:25 Oxygen Delivery Me thod Room Air 05/18/24 13:25 MDM - Extremity (Nontraumatic) Medical Decision Making US negative for DVT per John D/US tech. He states pain seems to be doing well and he is using arm well. He has no evidence for infection at this time. He is allowed discharge with return precautions. Otherwise can follow-up with Dr. Oliver as scheduled. Medical Records I reviewed the patient's medical records. XR interpretation done by ED provider, pending radiology final review (Per fibre composite technician-negative for DVT) Discharge Plan Discharge Patient Disposition: Home Clinical Impression: Swelling of surgical site Qualifiers: Encounter type: initial encounter Qualified Code(s): T81.89XA - Other complications of procedures, not elsewhere classified, initial encounter Condition: Stable Prescriptions: No Action betamethasone dipropionate 0.05 % cream 1 applic topical DAILY PRN (Reason: skin irritation) Qty: 15 0RF mupirocin 2 % ointment 1 applic topical BID Qty: 15 1RF sildenafil [Viagra] 25 mg tablet 25 mg PO DAILY PRN (Reason: Sexual Activity) Qty: 30 5RF Rx Instructions: administer 30 minutes to 4 hours before activity carbidopa-levodopa 50-200 mg tablet extended release 1 tab PO ONCE Qty: 90 4RF Rx Instructions: take 1 pill at bedtime carbidopa-levodopa 25-100 mg tablet 2 tab PO BID Rx Instructions: 2 tabs three time daily hydrocodone-acetaminophen 7.5-325 mg tablet 1 tab PO Q6H PRN (Reason: pain) Qty: 20 0RF Colace 100 mg capsule 100 mg PO BID Qty: 14 0RF Miralax 17 gram/dose powder 17 g PO DAILY Qty: 119 0RF Discharge Orders: Discharge ED (Routine); Ordered 05/18/24 Ordered By: Suzette Nolan Referrals: Rosas Mcgee DO [Primary Care Provider] - Activity Restrictions/Additional Instructions: As we discussed ultrasound did not show any blood clot to the arm. Continue caring for your suture sites as you have been doing. Monitor for any worsening redness, warmth, drainage, fevers, or any other concerns you may have. Coding Level of Care Code ED Travel Agent for Hugo Blackman
[2024-05-18 15:11] VITALS: BP 146/82; PULSE 57; RESP 16; O2SAT 100
== END 2024-05-18 15:17 | disposition home or self-care (01) ==
PROVIDERS: Emergency Provider Physician Assistant; PCP Family Medicine
DX: T81.89XA Other complications of procedures, not elsewhere classified, initial encounter (principal); G20.C Parkinsonism, unspecified
CPT/HCPCS: 93971; 99284

== ENCOUNTER → 2024-06-02 07:59 | Outpatient (BNVA) | payer MEDICARE, OTHER, SELFPAY | PROVIDERS: PCP Family Medicine; Visit Provider Surgery | DX: Z98.890 Other specified postprocedural states | CPT/HCPCS: 99024 ==

== ENCOUNTER → 2024-06-23 12:00 | Outpatient (BNVA) | payer MEDICARE, OTHER, SELFPAY | PROVIDERS: PCP Family Medicine; Visit Provider Psychiatry & Neurology Neurology | DX: G20.C Parkinsonism, unspecified (principal) | CPT/HCPCS: 99212; 99213 ==

== ENCOUNTER 2024-06-28 11:41 | Oncology outpatient (recurring) (ONCR) | payer MEDICARE, OTHER, SELFPAY ==
--- OUTSIDE RECORDS SUMMARY | 2024-06-27 09:58 | XMS_ITS ---
Author Name Unknown Organization [facility] Address [address] [place] [address] Care Team Providers Care Market Garden Worker Name Role Phone Rosas Mcgee Primary Care Provider Vinod Orellana [phone] REASON FOR VISIT 1 yr w/ psa Encounters Encounter Location Date Provider Diagnosis [facility] [address] [place] [address] 04/04/2024 Vinod Calloway Plan Of Treatment No Information Progress Notes * Izaiah FIELD LDOB: [birth year] (74 yo M)Acc No.[id number]:04/04/2024 Progress Notes Patient:?Izaiah FIELD Provider:?Vinod Calloway MD :1950???Age:74 Y???Sex:Male Ambrocio e:04/04/2024 Address:[address] [place], [place] [id number] Pcp:Rosas Mcgee Subjective: * Chief Complaints: * ???1. 1 yr w/ psa. * Medical History:? Objective: * Vitals:? Assessment: Plan: * Treatment: * Billing Information: * Visit Code:? * Procedure Codes:? * Electronic signature of Aust in MD Brodie on 06/27/2024 at 09:58 AM CDT Sign off status: Pending * Provider:?Vinod Calloway MD Date:? Generated for Helenai svitlana/Ena/eTransmitting on:?06/27/2024 09:58 AM MARCIALT
--- OUTSIDE RECORDS SUMMARY | 2024-06-27 09:58 | XMS_ITS ---
Author Name Unknown Organization [facility] Address [address] [place] [address] Care Team Providers Care Quality Tester Name Role Phone Rosas Mcgee Primary Care Provider Vinod Orellana Unavailable [phone] Remy Yip Unavailable [phone] Allergies No Known Allergies REASON FOR VISIT [...] 03/30/2023 Encounters Encounter Location Date Provider Diagnosis [facility] [address] [place] [address] 03/30/2023 Remy Yip Elevated PSA R97.20 ; [...] Future Test Test Name Order Date PSA Diagnostic--[id number] 03/30/2023 Next Appt Details Follow Up: 1 Year, Reason: Progress Notes * Izaiah FIELD LDOB: [birth year] (73 yo M)Acc No.[id number]:03/30/2023 Progress Notes Patient:?Izaiah Field Provider:?Remy Yip APRN :1950???Age:73 Y???Sex:Male Ambrocio e:03/30/2023 Address:[address] [place], [place] [id number] Pcp:Rosas Mcgee Check Out:01: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 The patient is a 73-yo male, referred by PCP for BPH. He reports the doctor noticed an enlarged prostate on the right side during a colonoscopy. PSA 3.06 on 12/19/2010. He is s/p laparoscopic umbilical and inguinal hernia repair with mesh on 05/05/[address] Oliver at [facility] in [place]. He c/o frequency, however, he notes to [...] Year * Billing Information: * Visit Code:? 10543 Office Visit, Est Pt., Level 3. * Procedure Codes:? * Sign off status: Completed true * Provider:Elvia Yip APRN Date:?03/21 Generated for Anahi shane/Ena/Bekah on:?06/27/2024 09:58 AM CDT History and Physical Notes * Examination [...]
--- OUTSIDE RECORDS SUMMARY | 2024-06-27 09:58 | XMS_ITS | Patient Health Record ---
Author Name Unknown Organization [facility] Address [address] [place] [address] Care Team Providers Care Industrial Economist Name Role Phone Rosas Mcgee Primary Care Provider Vinod Orellana Unavailable [phone] Allergies No Known Allergies Reason For Referral [...] Problem Status W/U Status Risk Notes Problem 429727292 Personal history of other diseases of the digestive system (Z87.19) Active confirmed Problem 30697620508510 Other specified postprocedural states (Z98.890) Active confirmed Problem 388711964 Elevated PSA (R97.20) Active confirmed Problem 760410142 Prostate cancer screening (Z12.5) Active confirmed Problem 423499255 Benign prostatic hyperplasia, unspecified whether lower urinary tract symptoms present (N40.0) Active confirmed Problem 675105090 BPH loc w urin obs/LUTS (N40.1) Active confirmed Problem 190087591 Scrotal swelling (N50.89) Active confirmed Plan Of Treatment Pending Test Test Name Order Date PSA Diagnostic--81727 11/06/2022 Future Test Test Name Order Date PSA Diagnostic--96317 03/30/2023 Insurance Providers Payer Name Payer Address Payer Phone Subscriber Number Group Number Insured Name Patient Relationship to Insured Coverage Start Date Coverage End Date [place] [address] [place] [phone] [id number] Izaiah Rodriguez Self - patient is the insured [facility] Insurance [address] [address] [place] [phone] [id number] Izaiah Rodriguez Self - patient is the insured Medical (General) History Medical History History ICD Code hernias Surgical History Surgery Date(Month/Year) umbilical hernia repair 04/2022 tonsillectomy
[2024-06-28 12:31] LABS: Basophils # 0.1 10^3/uL (0.0-0.1); Basophils % 0.9 %; Eosinophils # 0.4 10^3/uL (0.0-0.8); Eosinophils % 4.8 %; Hematocrit 45.8 % (37-53); Lymphocytes # 1.6 10^3/uL (0.8-4.8); Lymphocytes % 19.7 %; Mean Corpuscular HGB Conc 32.8 g/dL (30-55); Mean Corpuscular Hemoglobin 30.8 pg (27-33); Mean Platelet Volume 10.6 fL (7.4-10.4); Monocytes # 0.7 10^3/uL (0.2-0.9); Neutrophils # 5.34 10^3/uL (1.8-7.7); Neutrophils % 65.2 %; Nucleated Red Blood Cells % 0 %; Platelet Count 241 10^3/cmm (157-399); Red Blood Count 4.87 10^6/uL (3.85-5.65); Red Cell Distribution Width 12.7 % (12.1-15.1); White Blood Count 8.18 10^3/uL (3.29-11.43)
[2024-06-28 12:47] LABS: Alanine Aminotransferase 7 U/L (0-41); Albumin Level 4.3 g/dL (3.5-5.2); Alkaline Phosphatase 83 U/L (40-130); Anion Gap 13.3 (5-19); Aspartate Amino Transferase 19 U/L (0-40); Blood Urea Nitrogen 15 mg/dL (8-23); Carbon Dioxide 29 mmol/L (22-29); Chloride 102 mmol/L (98-107); Globulin 2.9 g/dL (1.3-4.6); Glucose 89 mg/dL (65-115); Lactate Dehydrogenase 153 U/L (135-225); Osmolality Calculated 290 mOsm/kg (285-295); Potassium 4.3 mmol/L (3.5-5.1); Sodium 140 mmol/L (136-145); Total Bilirubin 0.5 mg/dL (0.15-1.2); Total Protein 7.2 g/dL (6.6-8.7); Uric Acid 5.1 mg/dL (3.4-7.0)
== END 2024-07-21 23:59 | disposition home or self-care (01) ==
PROVIDERS: PCP Family Medicine; Visit Provider Internal Medicine Hematology & Oncology
DX: C43.61 Malignant melanoma of right upper limb, including shoulder (principal)
CPT/HCPCS: 36415; 80053; 83615; 84550; 85025; 99204

== ENCOUNTER → 2025-01-27 08:23 | Outpatient (BNVA) | payer MEDICARE, OTHER, SELFPAY | PROVIDERS: PCP Family Medicine; Visit Provider Nurse Practitioner Family | DX: D48.5 Neoplasm of uncertain behavior of skin (principal); Z08 Encounter for follow-up examination after completed treatment for malignant neoplasm; Z85.820 Personal history of malignant melanoma of skin | CPT/HCPCS: 11102; 99213 ==

== ENCOUNTER → 2025-03-01 13:45 | Outpatient (BNVA) | payer MEDICARE, OTHER, SELFPAY | PROVIDERS: PCP Family Medicine; Visit Provider Psychiatry & Neurology Neurology | DX: G20.A1 Parkinson's disease without dyskinesia, without mention of fluctuations (principal) | CPT/HCPCS: 99212 ==

== ENCOUNTER → 2025-04-03 08:05 | Outpatient (BNVA) | payer MEDICARE, OTHER, SELFPAY | PROVIDERS: PCP Family Medicine; Visit Provider Dermatology | DX: L82.1 Other seborrheic keratosis (principal); L12.0 Bullous pemphigoid; L98.8 Other specified disorders of the skin and subcutaneous tissue; D22.39 Melanocytic nevi of other parts of face; L57.8 Other skin changes due to chronic exposure to nonionizing radiation; D22.5 Melanocytic nevi of trunk; Z08 Encounter for follow-up examination after completed treatment for malignant neoplasm; Z85.820 Personal history of malignant melanoma of skin; L57.0 Actinic keratosis | CPT/HCPCS: 17000; 99213 ==

== ENCOUNTER 2025-04-06 13:42 | Outpatient (CLI) | payer MEDICARE, OTHER, SELFPAY ==
--- NOTE | 2025-04-06 13:49 | XR_ITS ---
WS: [id number] XR hip LT 2-3V wo/w pel* 11032 REASON FOR EXAM: M25.552 - Pain in left hip FINDINGS: No fracture or focal bone lesion. Mild narrowing of the posterior inferior joint space with relative preservation of the superior anterior joint space. Mild subchondral sclerosis at the acetabulum with moderate osteophytosis. Minimal osteophytosis of the femoral head. Soft tissue ossification posterior to the greater trochanter. Possibly related to previous trauma. XR/XR hip LT 2-3V wo/w pel* 18752 IMPRESSION: Mild osteoarthritis as above.
== END 2025-04-06 13:43 | disposition home or self-care (01) ==
LOC: RAD 13:45
PROVIDERS: PCP Family Medicine; Visit Provider Family Medicine
DX: M16.12 Unilateral primary osteoarthritis, left hip (principal)
CPT/HCPCS: 73502

== ENCOUNTER → 2025-07-28 10:15 | Outpatient (BNVA) | payer MEDICARE, OTHER, SELFPAY | PROVIDERS: PCP Family Medicine; Visit Provider Dermatology | DX: L82.1 Other seborrheic keratosis (principal); L98.8 Other specified disorders of the skin and subcutaneous tissue; D18.01 Hemangioma of skin and subcutaneous tissue; L12.0 Bullous pemphigoid; Z08 Encounter for follow-up examination after completed treatment for malignant neoplasm; Z85.820 Personal history of malignant melanoma of skin; D48.5 Neoplasm of uncertain behavior of skin; L57.0 Actinic keratosis | CPT/HCPCS: 11102; 17000; 99213 ==